=== PATIENT | male | born 1935 | race Caucasian/White ===

== ENCOUNTER → 2019-06-09 | Outpatient (POV) | payer MEDICARE, OTHER ==
[~2019-06-09] VITALS: Ht 172.7 cm; Wt 66.8 kg
[2019-06-09 12:10] VITALS: BP 159/69
--- NOTE | 2019-06-10 15:54 | IRCOV ---
[facility] IR Consult Office Visit IR Consult Office Visit DATE: Jun 09, 2019 REASON FOR CONSULTATION/CHIEF COMPLAINT: Rest pain. HISTORY OF PRESENT ILLNESS: 83-year-old male with history of TIAs and atrial fibrillation, presents for left lower extremity rest pain and pallor on elevation. He has a stage II pressure left heel ulcer, refractory to treatment. He is diabetic with good sugar control. He is under the care of wound care. Patient does not walk much, denies intermittent claudication. However does describe pain in the legs in the night after sleeping for 2-3 hours for which he has to get up and hang his legs over the side of the bed. He has had prior open- heart surgery and valve replacement and heart bypass. Patient denies chest pain, shortness of breath, orthopnea and paroxysmal nocturnal dyspnea. He quit smoking 40 years ago. He does suffer with hypertension and hyperlipidemia. ALLERGIES: Please see below. HOME MEDICATIONS: Please see below. PAST MEDICAL HISTORY: Diabetes Hypertension TIA Atrial fibrillation Open-heart surgery Aortic valve replacement PAST SURGICAL HISTORY: Open-heart surgery Left knee replacement Basal cell carcinoma removal Carpal tunnel FAMILY HISTORY: Noncontributory SOCIAL HISTORY: Ex-smoker. No drugs or alcohol. REVIEW OF SYSTEMS: Otherwise negative. PHYSICAL EXAMINATION: VITAL SIGNS: Please see below. GENERAL APPEARANCE: Appears well. Comfortable at rest. HEENT: No scleral icterus. RESPIRATORY: Normal breathing at rest. CARDIOVASCULAR: Normal rate. ABDOMEN: Non-distended. EXTREMITIES: Left lower extremity: Red. Warm. Hairless. Shiny. Superficial carlson blisters with weeping. DP/PT negative. popliteal 1+ Right lower extremity: Mild edema. Punctate wounds on the carlson. Bulging varicose veins. Warm. DP/PT negative. popliteal 1 + NEUROLOGICAL: Alert and oriented. PSYCHIATRIC: Appropriate to circumstance. LABORATORY DATA: None Imaging: None ASSESSMENT/PLAN: 83-year-old diabetic male with atrial fibrillation and prior TIAs, with coronary risk factors presents with left lower extremity rest pain. Patient has critical limb ischemia and indication for angiography and/or intervention as appropriate. However, patient does not want to stop Coumadin for angiography due to risk of stroke and would rather have a CTA for now to assess baseline and need. We have scheduled the patient for the CTA exam with bilateral lower extremity runoff and will follow up with the patient once this is done. I spent 30 minutes in consultation with the patient. Thank you for this referral. Cc Dr. Crowder VS, I&O, 24H, Fishbone Vital Signs/I&O Vital Signs Date Time Temp Pulse Resp B/P (MAP) Pulse Ox O2 Delivery O2 Flow Rate FiO2 06/09/19 12:10 97.1 73 18 159/69 (99) 98 Room Air SWATHI REYEZ MD Jun 10, 2019 15:54
== END ==
LOC: M IRPOV 11:42
PROVIDERS: ATTEND Radiology Diagnostic Radiology
DX: I70.244 Atherosclerosis of native arteries of left leg with ulceration of heel and midfoot (principal); I70.222 Atherosclerosis of native arteries of extremities with rest pain, left leg; E11.51 Type 2 diabetes mellitus with diabetic peripheral angiopathy without gangrene; L97.429 Non-pressure chronic ulcer of left heel and midfoot with unspecified severity; I10 Essential (primary) hypertension; E78.5 Hyperlipidemia, unspecified; I48.91 Unspecified atrial fibrillation; Z79.01 Long term (current) use of anticoagulants; Z79.899 Other long term (current) drug therapy; Z86.73 Personal history of transient ischemic attack (TIA), and cerebral infarction without residual deficits; Z87.891 Personal history of nicotine dependence; Z96.652 Presence of left artificial knee joint

== ENCOUNTER → 2019-06-26 | Outpatient (REF) | payer MEDICARE, OTHER | LOC: M WUC 15:54 | PROVIDERS: ATTEND Dermatology | DX: L12.0 Bullous pemphigoid (principal); L97.819 Non-pressure chronic ulcer of other part of right lower leg with unspecified severity | CPT/HCPCS: 36415; 83516; G0463 ==

== ENCOUNTER → 2019-09-04 | Outpatient (CLI) | payer MEDICARE, OTHER ==
[2019-09-04 17:40] LABS: BASO % 0.2 % (0.0-1.0); EOS % 0.1 % (0.0-3.0); HEMATOCRIT 30.8 % (42.0-52.0); HEMOGLOBIN 9.8 g/dl (13.5-17.5); LYMPH # 0.6 10^3/uL (1.5-5.0); LYMPH % 6.2 % (24.0-44.0); MEAN CORPUSCULAR HEMOGLOBIN 28.7 pg (27.0-33.0); MEAN CORPUSCULAR HGB CONC 31.8 g/dl (32.0-36.5); MEAN CORPUSCULAR VOLUME 90.3 fl (80.0-96.0); MONO # 0.4 10^3/uL (0.0-0.8); MONO % 3.7 % (0.0-5.0); NEUTROPHILS # 8.3 10^3/uL (1.5-8.5); NEUTROPHILS % 88.2 % (36.0-66.0); PLATELET COUNT, AUTOMATED 300 10^3/uL (150-450); RED BLOOD COUNT 3.41 10^6/uL (4.30-6.10); WHITE BLOOD COUNT 9.4 10^3/uL (4.0-10.0)
[2019-09-04 17:48] LABS: ALBUMIN 3.2 GM/DL (3.2-5.2); ALT/SGPT 29 U/L (12-78); BILIRUBIN,TOTAL 0.4 MG/DL (0.2-1.0); BLOOD UREA NITROGEN 46 MG/DL (7-18); CALCIUM LEVEL 8.2 MG/DL (8.8-10.2); CARBON DIOXIDE LEVEL 22 MEQ/L (21-32); CHLORIDE LEVEL 104 MEQ/L (98-107); CREATININE FOR GFR 1.54 MG/DL (0.70-1.30); GLOMERULAR FILTRATION RATE 45.8 (>35); GLUCOSE, FASTING 249 MG/DL (70-100); POTASSIUM SERUM 5.5 MEQ/L (3.5-5.1); SODIUM LEVEL 137 MEQ/L (136-145); TOTAL PROTEIN 5.6 GM/DL (6.4-8.2)
[2019-09-07 11:04] LABS: HEPATITIS B SURFACE ANTIGEN NEGATIVE (NEGATIVE)
[2019-09-07 11:30] LABS: HEPATITIS C VIRUS ABY INDEX 0.3 INDEX (<0.8)
[2019-09-07 11:31] LABS: HEPATITIS B CORE ANTIBODY IGM NEGATIVE (NEGATIVE)
[2019-09-07 11:32] LABS: HIV 1&2 SCREEN CENTAUR NEGATIVE (NEGATIVE)
[2019-09-07 15:46] LABS: HEPATITIS A ANTIBODY IGM NEGATIVE (NEGATIVE)
== END ==
LOC: M WUC 11:29
PROVIDERS: ATTEND Dermatology
DX: L12.0 Bullous pemphigoid (principal)
CPT/HCPCS: 36415; 80053; 85025; 86480; 86705; 86709; 86803; 87340; 87389; G0463

== ENCOUNTER → 2019-10-01 | Outpatient (REF) | payer MEDICARE, OTHER | LOC: M LAB REF 14:48 | PROVIDERS: ATTEND Dermatology | DX: L12.0 Bullous pemphigoid (principal) | CPT/HCPCS: 87070; 87077; 87186; G0463 ==